=== PATIENT | male | born 1960 | race Caucasian/White ===

== ENCOUNTER → 2023-12-22 06:36 | Outpatient (REF) | payer OTHER, SELFPAY | LOC: HWRAD 06:36 | PROVIDERS: ATTENDING PHYSICIAN Student in an Organized Health Care Education/Training Program | DX: M17.12 Unilateral primary osteoarthritis, left knee (principal); M17.11 Unilateral primary osteoarthritis, right knee | CPT/HCPCS: 73564 ==

== ENCOUNTER 2024-04-24 13:50 | Emergency (ER) | payer OTHER, SELFPAY ==
[2024-04-24 13:51] VITALS: BP 159/85
[2024-04-24 14:07] VITALS: BMI 20.2
--- NOTE | 2024-04-24 14:10 | ED.GENMED ---
History of Present Illness
General
Chief Complaint: Headache
Source: patient
Exam Limitations: none
Time Seen by Provider: 04/24/24 14:08
Nursing documentation reviewed up to this point in time: agreed with
History of Present Illness
History of Present Illness:
This is a 64 y/o male presenting to the emergency department today with concerns of headache and neck pain following hitting his head. Patient states that 3 days ago, he was playing with his grandchild and was running up a slide on the playground
when he ran up so fast that he hit his head on a piece of wood at the top of the slide and subsequent hyperextended his neck. Patient states that after this occurred, he started having a frontal headache as well as neck pain. Patient feels the
neck pain. Patient denies visual loss, visual changes, dizziness, syncopal episodes, anterior neck pain, upper extremity paresthesias, weakness in one-sided body versus other, confusion, difficulty speaking, difficulty ambulating. Patient had a
few doses of Advil at home without relief. Patient states that his pain is not resolved and feels like his headache has gotten a bit worse and so his family encouraged him to report to the emergency department today. Patient denies any chest pain
or shortness of breath.
Past History
Past History
ED Past Medical History: Cancer (Skin) and HTN
ED Past Surgical History: Appendectomy
Social History
Tobacco: Non-smoker
Alcohol: Occasional
Drug: Marijuana
Personal:
Living: with family
Employment: Employed
Family History
Family History: Negative Diabetes, Hypertension or CAD
Review of Systems
Review of Systems
Allergies reviewed?: Yes
All Other Systems: ROS reviewed and negative except as documented in HPI and ROS
Phy Exam
Physical Exam
Physical Exam:
General: Patient is well appearing and in no acute distress; non-toxic
Skin: Warm and dry, no rashes or lesions
Head: Small abrasion small area of ecchymosis to the forehead. No tenderness palpation to facial bones. Negative Jones sign, negative raccoon sign. TMJ joints intact bilaterally.
Eyes: Sclera non-icteric. EOMs intact. PERRLA.
Mouth: No intraoral lesions or lacerations.
Nose: No septal hematoma
Cardiac: Regular rate and rhythm
Peripheral Vascular: No lower extremity swelling
Pulm: Normal respiratory effort
Abdomen: No abdominal tenderness, no ecchymosis, no signs of trauma
Musculoskeletal: Patient has neck pain with active range of motion of the cervical spine. Patient has tenderness to palpation of the upper trapezius.
Neuro: GCS 15. CN II-XII intact, no focal neurologic deficits. 5 of 5 strength in bilateral upper extremities. Normal finger-nose, drid-gd-[id number] testing.
Psychiatric: Appropriate mood and affect.
Course
Orders/Labs/Results
Orders:
Orders
04/24/24 14:23
CT Cervical Spine W/o Iv Contr Urgent
Reason For Exam: posterior neck pain
CT Head W/o Iv Contrast Urgent
Comment:
Reason For Exam: headache x3 days following trauma
04/24/24 14:26
Acetaminophen [Tylenol] 1,000 mg PO NOW STA
Vital Signs
Initial and Last Documented VS:
Initial Vital Signs
Temp Pulse Resp BP Pulse Ox
99.0 F 63 16 159/85 99
04/24/24 13:51 04/24/24 13:51 04/24/24 13:51 04/24/24 13:51 04/24/24 13:51
Last Documented Vital Signs
Temp Pulse Resp BP Pulse Ox
99.0 F 68 20 128/76 98
04/24/24 13:51 04/24/24 17:05 04/24/24 17:05 04/24/24 17:05 04/24/24 17:05
MDM/Problems Addressed
Differential Diagnosis Includes:
ddx include concussion, epidural hematoma, cervical strain/whiplash injury,tension headache, subarahcnoid hemorrhage
MDM/Problems Addressed:
Neck pain, headache:
This is a 64 y/o male presenting to the emergency department today with concerns of headache and neck pain following hitting his head. Patient states that 3 days ago, he was playing with his grandchild and was running up a slide on the playground
when he ran up so fast that he hit his head on a piece of wood at the top of the slide and subsequent hyperextended his neck. Considering his age and worsening symptoms, CT of the head was obtained which was negative for any acute intracranial
normality, negative for any fractures cervical spine, negative for any acute subluxation did demonstrate some mild degenerative changes. Patient was given a gram of Tylenol here which did help with his symptoms. Patient stable for discharge at
this point, discussed return precautions, discussed follow-up with primary care. Considering lack of neurologic symptoms and negative imaging, no indication for MRI or CTA at this time.
Chronic conditions affecting care:
skin cancer, hypertension, hyperlipidemia
Acute Exacerbation and/or Progression of Chronic Illness:
n/a
*Pulse Oximetry
Patient hypoxic: no
*Critical Care Note
Total Time (30-74mins, 75-104mins- exclusive of procedures): Not Applicable
Data Reviewed
Review of Other/Old Records Reveals: Records (Reviewed ER physician documentation from 08/05/2023) and Discharge Summary (Reviewed discharge summary from 11/29/2022)
Source: patient and records
Patient Management
Escalation/DeEscalation of care consider admission/obs:
Admission not indicated, reviewed this case with my attending Dr. Parra who is in agreement with treatment plan and workup
ED Attending Note
-
Portions of this chart may have been created with voice recognition software.� Occasional wrong word or��sound alike� substitutions may have occurred due to the inherent limitations of voice recognition software.
Discharge Plan
Departure
Patient Disposition: Home (Routine Discharge)
Date of Disposition: 04/24/24
Time of Disposition: 16:58
Patient with high blood pressure during this ER visit?: Yes
Condition: Good
Discharge Problem:
Acute whiplash injury
Instructions: Headache, Adult (DC), Cervical Sprain ED
Prescriptions:
New
cyclobenzaprine 15 mg capsule,extended release 24hr
15 mg PO DAILY Qty: 10 0RF
No Action
amlodipine 5 MG tablet
10 mg PO DAILY
hydrocortisone acetate [Anusol-HC] 25 mg suppository
25 mg OH BID Qty: 24 0RF
Referrals:
UNKNOWN - PT DOES,NOT KNOW [Family Provider] -
Activity Restrictions/Additional Instructions:
Your CT scan of your head and cervical spine was negative for any acute intracranial abnormality, no fracture of the cervical spine.
Please follow up with your primary care provider in one week to reassess your symptoms and to ensure symptoms have improved.
We have sent a muscle relaxant called cyclobenzaprine to your pharmacy. This may cause drowsiness, I recommend taking this at bedtime. You can take 1 tablet before bed once daily for the next few days. If this is not improved your symptoms,
please this medication.
Please continue ibuprofen, you can take one 200 mg tablet orally every 4-6 hours you can increase this to 400 mg every 4-6 hours if needed, but do not exceed 1200 mg a day. If your pain is not resolving within a week of using this daily, please
stop this, as ibuprofen can increase your blood pressure over time and put you at risk for gastritis.
Interventions
Interventions:
*Risk Screen - Suicide Last Done: 04/24/24 14:07
*General Assessment Last Done: 04/24/24 13:51
*Neglect/Abuse Screening Last Done: 04/24/24 14:07
*ED COVID-19 Vaccine History Last Done: 04/24/24 13:51
*Nursing Disposition Last Done: 04/24/24 17:26
ED- Neurological Assessment Last Done: 04/24/24 14:07
Discharge Date and Time
Discharge Date/Time: 04/24/24 17:27
Print Language: SAO TOMEAN
[2024-04-24] MEDS: TYLENOL 1000 MG PO (14:32)
[2024-04-24 17:05] VITALS: BP 128/76
== END 2024-04-24 17:27 | disposition home or self-care (01) ==
LOC: EMR 13:50
PROVIDERS: EMERGENCY PHYSICIAN Emergency Medicine
DX: S13.4XXA Sprain of ligaments of cervical spine, initial encounter (principal); W22.09XA Striking against other stationary object, initial encounter; I10 Essential (primary) hypertension; E78.5 Hyperlipidemia, unspecified
CPT/HCPCS: 99284; 70450; 72125

== ENCOUNTER 2025-03-29 04:54 | Emergency (ER) | payer SELFPAY ==
[2025-03-29 05:05] VITALS: BP 165/94
[2025-03-29] MEDS: TYLENOL 650 MG PO (05:15)
--- NOTE | 2025-03-29 06:35 | ED.SKININJ ---
HPI-Injury
General
Chief Complaint: Skin Surface Trauma
Source: patient
Exam Limitations: none
Time Seen by Provider: 03/29/25 06:20
History of Present Illness-Injury
Initial Injury comments:
64-year-old [id number] male presents with laceration of the left thumb he sustained today at work. He was cutting pork roll and slipped and cut his left thumb. Last tetanus unknown. He notes a large flap to the distal portion of the
thumb. No other complaints
Past History
Past History
ED Past Medical History: Cancer (Skin) and HTN
ED Past Surgical History: Appendectomy
Social History
Tobacco: Non-smoker
Alcohol: Occasional
Drug: Marijuana
Personal:
Living: with family
Employment: Employed
Family History
Family History: Negative Diabetes, Hypertension or CAD
Phy Exam
Physical Exam
Physical Exam:
General: Well-appearing male no acute distress skin: 1.5 cm deeper flap type laceration distal portion left thumb. About 4 mm of flap are still attached. No significant bleeding no tendon involvement. Neurologic: Good sensation distal portion
left thumb
Vascular: Brisk capillary refill left thumb
Course
Orders/Labs/Results
Orders:
Orders
03/29/25 05:12
Acetaminophen [Tylenol] 650 mg .ROUTE .STK-MED ONE
03/29/25 05:14
Acetaminophen [Tylenol] 650 mg PO NOW STA
03/29/25 06:43
Tetanus/Diphth/Acelpertussis [Adacel] 0.5 ml IM .ONCE ONE
Vital Signs
Initial and Last Documented VS:
Initial Vital Signs
Temp Pulse Resp BP Pulse Ox
97.4 F 62 18 165/94 99
03/29/25 05:05 03/29/25 05:05 03/29/25 05:05 03/29/25 05:05 03/29/25 05:05
Last Documented Vital Signs
Temp Pulse Resp BP Pulse Ox
97.4 F 62 18 165/94 99
03/29/25 05:05 03/29/25 05:05 03/29/25 05:05 03/29/25 05:05 03/29/25 05:05
MDM/Problems Addressed
Differential Diagnosis Includes:
Laceration to left thumb.
DIgitial blcck provided at base of thumb with lidocaine and marcaine.
*Critical Care Note
Total Time (30-74mins, 75-104mins- exclusive of procedures): Not Applicable
Update Note
Update Note:
Digital block provided adequate anesthesia. The wound was then copiously irrigated with saline and the flap was realigned and sutured closed with 5-0 Prolene sutures. A total of 5 sutures were performed in a simple erupted fashion. This did
provide hemostasis and wound edge approximation. Tetanus vaccine updated bulky dressing applied. Stable for discharge with follow-up for suture removal in 10 to 14 days
ED Attending Note
-
Portions of this chart may have been created with voice recognition software.� Occasional wrong word or��sound alike� substitutions may have occurred due to the inherent limitations of voice recognition software.
Discharge Plan
Departure
Patient Disposition: Home (Routine Discharge)
Date of Disposition: 03/29/25
Time of Disposition: 07:11
Patient with high blood pressure during this ER visit?: No
Discharge Problem:
Laceration
Instructions: Laceration Repair With Stitches (DC)
Prescriptions:
No Action
amlodipine 5 MG tablet
10 mg PO DAILY
hydrocortisone acetate [Anusol-HC] 25 mg suppository
25 mg OR BID Qty: 24 0RF
cyclobenzaprine 15 mg capsule,extended release 24hr
15 mg PO DAILY Qty: 10 0RF
Referrals:
Gissel Cheek CRNP [Family Provider, Family Practice]
Activity Restrictions/Additional Instructions:
Keep clean. Have sutures removed in 10 to 14 days. Return if worse otherwise follow-up with your work-related physician
Interventions
Interventions:
*Risk Screen - Suicide Last Done: 03/29/25 05:05
*General Assessment Last Done: 03/29/25 05:17
*Neglect/Abuse Screening Last Done: 03/29/25 05:48
*ED- Fall Risk Assessment Last Done: 03/29/25 05:17
*ED COVID-19 Vaccine History Last Done: 03/29/25 05:17
ED-Skin Assessment Last Done: 03/29/25 05:48
Discharge Date and Time
Print Language: CZECH
[2025-03-29] MEDS: ADACEL 0.5 ML IM (07:15)
== END 2025-03-29 07:21 | disposition home or self-care (01) ==
LOC: EMR 04:54
PROVIDERS: EMERGENCY PHYSICIAN Emergency Medicine; FAMILY PHYSICIAN Nurse Practitioner Family
DX: S61.012A Laceration without foreign body of left thumb without damage to nail, initial encounter (principal); W26.0XXA Contact with knife, initial encounter; Y93.G1 Activity, food preparation and clean up; Y99.0 Civilian activity done for income or pay; I10 Essential (primary) hypertension; Z85.828 Personal history of other malignant neoplasm of skin; Z90.49 Acquired absence of other specified parts of digestive tract
CPT/HCPCS: 90471; 12001; 99282; 90715

== ENCOUNTER → 2025-04-30 14:39 | Outpatient (REF) | payer MEDICARE, OTHER, SELFPAY | LOC: HWRAD 14:39 | PROVIDERS: ATTENDING PHYSICIAN Nurse Practitioner Family | DX: R10.31 Right lower quadrant pain (principal); R22.41 Localized swelling, mass and lump, right lower limb | CPT/HCPCS: 76882 ==